=== PATIENT | male | born 1975 | race Caucasian/White ===

== ENCOUNTER 2017-03-17 18:15 | Emergency (ER) | payer OTHER ==
--- NOTE | ~2017-03-17 | CR127 ---
[facility] A Service of [facility] RADIOLOGY TEXT RESULTS PATIENT: SAUL FOWLER LOCATION: SED : 71 UNIT #: [id number] AGE: [address]: Kenji Singh MD SEX: M ORDER DR: [id number] [place] [id number] E MR#: [id number] Acc #: [id number] NAME: SAUL FOWLER. : 1975 SEX: M STUDY DATE/TIME: 03/17/2017 20:17 UNIT: SED ROOM: STUDY DESCRIPTION: CR Foot Complete Min 3 View Rt Attending Physician: Kenji Singh M.D. Ordering Physician: Kenji Singh M.D. Primary Care Physician: No Primary Care Physician MEDICAL IMAGING REPORT This report is preliminary unless electronic signature is present. EXAM Three views, right foot; 03/17/2017. HISTORY Redness. Infection at foot. Diabetic, redness bottom of foot 4 days duration, neuropathy in feet. TECHNIQUE AP, lateral and oblique radiographs of the right foot are presented. COMPARISON 09/04/2016 FINDINGS No fracture. No malalignment. Joint spaces intact. No bony destructive process seen. Question cutaneous irregularity medial aspect of great toe at level of distal interphalangeal joint. Similar appearance on prior examination. This could represent chronic post-traumatic or postoperative change. Soft tissue ulceration not excluded. I have seen no subcutaneous air. No radiopaque foreign body. Question mild soft tissue swelling of the great toe. No other definite cutaneous irregularities. Dictated by... Frantz Vincent M.D. THIS IS AN ELECTRONICALLY VERIFIED REPORT Frantz Vincent M.D. at 03/18/2017 8:03 PM CHANDUK/jennifer [facility] A Service of [facility] RADIOLOGY TEXT RESULTS PATIENT: SAUL FOWLER LOCATION: SED : 71 UNIT #: [id number] AGE: [address]: Kenji Singh MD SEX: M ORDER DR: TD: 03/18/2017 00:01 JOB #: [id number] MEDICAL IMAGING REPORT Page 1 of 1
[~2017-03-17 18:15] MED LIST: CLEOCIN HCL300 M1 PO; FAMOTIDINE; GABAPENTIN300 M2 PO; GLUCOPHAGE500 M1 PO; GLUCOTROL PO; LEVAQUIN PO; LISINOPRIL20 MG PO; METFORMIN HCL500 M1 PO; METFORMIN PO; NAPROSYN500 MG PO; PHENERGAN SUPP25 MG; PHENERGAN25 M1; PRINIVIL10 MG PO; SIMVASTATIN20 MG PO; VICODIN 5/1 TAB 5/50 PO
[2017-03-17] MEDS ORDERED: PRILOSEC PO (18:49)
[2017-03-17] MEDS ORDERED: NEURONTIN300 MG PO (18:49)
[2017-03-17] MEDS ORDERED: ASPIRIN81 MG PO (18:49)
[2017-03-17 20:50] LABS: BASOPHIL# 0.1 X10e3 (0-0.3); BASOPHIL% 0.7 % (0-2.5); EOSINOPHIL% 0.3 % (0.0-7.0); HEMATOCRIT 39.3 % (38.0-50.0); HEMOGLOBIN 13.5 gm/dL (13.0-16.0); LYMPHOCYTE# 2.6 X10e3 (1.0-3.5); LYMPHOCYTE% 34.7 % (17.0-45.0); MEAN CELL VOLUME 85.8 FL (83-96); MEAN CORPUSCULAR HEMOGLOBIN 29.4 PG (28-34); MEAN CORPUSCULAR HGB CONC 34.3 g/dL (30-36); MEAN PLATELET VOLUME 8.6 FL (6.5-11.5); MONOCYTE# 0.6 X10e3 (0-1.0); MONOCYTE% 8.3 % (3.0-12.0); NEUTROPHIL# 4.2 X10e3 (1.5-7.1); PLATELET COUNT 266 X10e3 (140-420); RED BLOOD COUNT 4.58 X10e (3.90-5.60); RED CELL DISTRIBUTION WIDTH 13.8 % (11.0-15.5); WHITE BLOOD COUNT 7.6 X10e3 (4.0-10.5)
[2017-03-17 20:56] LABS: DIFF IND NO
[2017-03-17 21:09] LABS: ALBUMIN SERUM 3.8 g/dL (3.5-5.0); BILIRUBIN, DIRECT 0.2 mg/dL (0.0-0.2); BILIRUBIN,TOTAL 1.2 mg/dL (0.2-2.0); BUN/CREATININE RATIO 16.25; CALCIUM SERUM 9.1 mg/dL (8.4-10.2); CREATININE SERUM 0.8 mg/dL (0.6-1.4); GLOM FILT RATE Estimated 108.7 mL/min (>60); POTASSIUM 3.8 mmol/L (3.5-5.1); PROTEIN TOTAL SERUM 8.4 g/dL (6.0-8.3)
== END 2017-03-17 22:50 | disposition home or self-care (01) ==
LOC: SED 18:15
PROVIDERS: Emergency Medicine
DX: L03.115 Cellulitis of right lower limb (principal); E11.621 Type 2 diabetes mellitus with foot ulcer; L97.419 Non-pressure chronic ulcer of right heel and midfoot with unspecified severity; K21.9 Gastro-esophageal reflux disease without esophagitis; E78.5 Hyperlipidemia, unspecified; Z79.82 Long term (current) use of aspirin; Z79.899 Other long term (current) drug therapy
CPT/HCPCS: 36415; 73630; 80048; 80076; 83605; 85025; 87040; 87070; 87077; 87205; 96365; 96367; 99284; J0696; J3370